=== PATIENT | male | born 1985 | race Caucasian/White ===

== ENCOUNTER 2022-03-17 09:51 | Emergency (ER) | payer OTHER, SELFPAY ==
[2022-03-17 10:07] VITALS: BP 138/86; PULSE 87; RESP 18; TEMP 36.3; O2SAT 97
--- NOTE | 2022-03-17 10:30 | DI.CT_ITS ---
Exam(s) CT ABDOMEN PELVIS W EXAM: CT ABDOMEN PELVIS W CLINICAL HISTORY: RLQ and right flank pain, back pain lumbar TECHNIQUE: Imaging Protocol: Axial computed tomography images with coronal and sagittal reformatted images were created and reviewed CONTRAST MATERIAL: Intravenous: Omnipaque 350 Contrast volume:100 mL Oral: No COMPARISON: No exams were available for comparison FINDINGS: ABDOMEN: Lung Bases: Normal where visualized. Liver: Normal density. No measurable mass. Portal, Superior Mesenteric, and Splenic Veins: Unremarkable. Gallbladder and Biliary Tract: No radiodense calculus or dilation. Pancreas: Normal density, no abnormal calcifications or inflammatory process. Spleen: Normal. Adrenals: No masses seen. Kidneys: Normal size, contour and axis. No radiodense stones or obstructive uropathy. No masses seen. Abdominal Aorta: Abdominal portion non-dilated. Bowel: There is mild thickening of the wall of the transverse colon and mild pericolonic inflammatory changes consistent with infectious or inflammatory colitis. There is no evidence of bowel obstructi on. Appendix is unremarkable. Peritoneal Cavity: No ascites, collection or mesenteric inflammatory response. No free air. Lymph Nodes: There are mildly enlarged mesenteric and right lower quadrant lymph nodes. These are li desmond reactive. Bones: Within normal limits for the patient's age. Soft Tissues: Unremarkable. PELVIS: Bladder: Symmetric distention, no gross wall thickening. Reproductive Organs: Unremarkable as visualized. Lymph Nodes: Within normal limits. Bones: Within normal limits for the patient's age. IMPRESSION: 1. Bowel wall thickening of the transverse colon with mild pericolonic inflammatory changes consisten t with an infectious or inflammatory colitis. 2. No free air or free fluid. 3. Findings were discussed with Raina Frederick at 11:39 a.m. on 03/17/2022. RADIATION DOSE DELIVERED: 1,214.48mGy.cm Total DLP DATA REPOSITORY: All CT scans at this facility are submitted to the National Radiology Data Registry (NRDR) Dose Index Registry (DIR) with the [employer] ([employer]). RADIATION OPTIMIZATION: All CT scans at this facility use at least one of these dose optimization te chniques: automated exposure control; mA and/or kV adjustment per patient size (includes targeted exa ms where dose is matched to clinical indication); or iterative reconstruction.
[2022-03-17 10:51] LABS: Abs Immature Grans 0.02 10^3/uL (0.0-0.06); Absolute Basophil Count 0.03 10^3/uL (0.0-0.2); Absolute Eosinophil Count 0.14 10^3/uL (0.0-0.7); Absolute Lymphocyte Count 1.71 10^3/uL (1.2-3.4); Absolute Monocyte Count 0.47 10^3/uL (0.1-0.8); Absolute Neutrophil Count 3.66 10^3/uL (1.2-6.7); Basophils % 0.5; Eosinophils % 2.3; HCT 42.1 % (40.0-50.0); HGB 13.5 g/dL (13.5-17.5); Immature Grans % 0.3; Lymphocytes % 28.4; MCH 27.7 pg (27.0-33.0); MCHC 32.1 % (32.0-36.0); MCV 86 fL (80-95); MPV 10.1 fL (8.0-11.0); Monocytes % 7.8; Neutrophils % 60.7; Platelet Count 196 10^3/uL (130-400); RBC 4.87 10^6/uL (4.36-5.78); RDW-SD 40.7 fL; WBC 6.03 10^3/uL (4.4-10.8)
[2022-03-17] MEDS: ACETAMINOPHEN 1,000 MG/100 ML BTL 400 MG IVPB (10:53)
[2022-03-17 11:01] LABS: Bilirubin Negative (Negative); Blood Trace-intact (Negative); Clarity Clear (Clear); Glucose Negative (Negative); Ketones Negative (Negative); Leukocyte Esterase Negative (Negative); Nitrite Negative (Negative); Specific Gravity 1.025 (1.005-1.025); Urobilinogen 0.2 EU/dL (Up TO 0.2)
[2022-03-17 11:09] LABS: Bacteria Negative HPF (Negative); C & S Indicated? No; Casts Negative LPF (Negative); Crystals Negative HPF (Negative); Epithelial Cells Rare HPF (Negative); Mucus Trace (Negative); RBC 0-2 HPF (0-2); WBC 0-2 HPF (0-5)
[2022-03-17] MEDS: Omnipaque 350 MG/ML 100 ML BTL IJ (11:15)
[2022-03-17] MEDS: Normal Saline - Diluent 50 ML VIAL IV (11:16)
[2022-03-17 11:17] LABS: ALT 23 U/L (16-63); AST 21 U/L (15-37); Albumin 3.8 g/dL (3.4-5.0); Alkaline Phosphatase 61 U/L (46-116); Anion Gap 5.4 mmol/L (3-11); BUN 14 mg/dL (7-18); Bilirubin, Total 0.8 mg/dL (0.2-1.0); CO2 28.6 mmol/L (21.0-32.0); Calcium 8.7 mg/dL (8.5-10.1); Chloride 104 mmol/L (98-107); Glucose 110 mg/dL (74-106); Lipase 49 U/L (73-393); Sodium 138 mmol/L (136-145); Total Protein 7.3 g/dL (6.4-8.2)
--- NOTE | 2022-03-17 11:20 | ED.GENADUL_ITS ---
Discharge Plan Disposition Patient Disposition: Home Condition: Stable Discharge Details Clinical Impression: Colitis Primary Care Provider: Joel Babcock ED Provider: Raina Frederick Home Meds and New Rx's Prescriptions: New amoxicillin-pot clavulanate 875-125 mg tablet 1 tab PO BID Qty: 14 0RF Continued quetiapine [Seroquel] 400 mg Tablet 400 mg PO HS sertraline 200 mg Capsule 200 mg PO DAILY acyclovir 400 mg Tablet 400 mg PO DAILY Discharge Instructions Additional Instructions: Take the antibiotic as prescribed Yogurt daily while on antibiotic Follow-up with your primary care physician Return immediately should you have fever, chills, worsening pain, or with any new or progressing symptoms Referrals: Joel Babcock [Primary Care Provider] - 1 day Johnny Taylor MD [ [facility] STAFF PHYSICIAN] - Discharge Data Discharge Date/Time-TO BE ENTERED AT DEPARTURE: 03/17/22 12:07 Medical Decision Making This otherwise healthy 36-year-old gentleman presents with 6 weeks of abdominal pain, he has evidence of colitis on CT scan without obvious evidence of diverticulitis, and the history of 6 weeks of symptoms, he was placed on Augmentin for several days secondary to evidence of colitis with symptoms for 6 weeks Interestingly, the patient does not have documented diarrhea Will need outpatient colonoscopy, he is placed on the surgery list for follow- up Return precautions were reviewed and patient expressed understanding, discharged home in stable condition with stable vitals, surgical referrals applied PCP follow-up recommended Return precautions reviewed and patient expressed understanding Medical Records Medical records reviewed: Yes I reviewed the patient's medical records. Lab Data Lab results reviewed: Yes I reviewed the patient's lab results. Sign Out No HPI General Date/Time Provider Initiated Documentation: 03/17/22 10:19 . HPI Narrative: This 36-year-old male presents with report of left lower quadrant pain with radiation into the back. Denies any urinary complaints. Denies known hernia. States he has a history of chronic back pain but this pain is different. He does report that it occasionally radiates into his left testicle. He denies any hematuria. Pain is been going on for approximately 3 weeks and he describes it as a cramping and intermittently sharp pain. Denies any nausea or vomiting. Related Data Home Medications Medication Instructions Recorded Confirmed acyclovir 400 mg tablet 400 mg PO DAILY 03/17/22 03/17/22 amoxicillin 875 mg-potassium 1 tab PO BID #14 tabs 03/17/22 clavulanate 125 mg tablet quetiapine 400 mg tablet (Seroquel) 400 mg PO HS 03/17/22 03/17/22 sertraline 200 mg capsule 200 mg PO DAILY 03/17/22 03/17/22 Previous Rx's Medication Instructions Recorded amoxicillin 875 mg-potassium 1 tab PO BID #14 tabs 03/17/22 clavulanate 125 mg tablet Allergies Allergy/AdvReac Type Severity Reaction Status Date / Time tramadol Allergy Unverified 03/17/22 10:12 trazodone Allergy Unverified 03/17/22 10:12 General Stated Complaint: Abd Prob YOLANDA: 3 Review of Systems All systems reviewed & are unremarkable except as noted in HPI and below PFSH All Active Problems (Updated 03/17/22 @ 11:57 by CELINA Taylor) Colitis (Acute) Social History Smoking/Tobacco Use Status: Former Tobacco Use Smoking risk assessment performed?: Yes Alcohol Intake: never Drug use: Daily Substance use type: marijuana Do you feel safe at home: Yes Do you feel safe in your relationship?: Yes Exam Const General: cooperative, comfortable and no acute distress HENMT Mouth: oral mucosae normal Eyes Sclera: sclerae normal Resp Effort & Inspection: normal respiratory effort Auscultation: clear to auscultation bilaterally Cardio Rate: regular rate Rhythm: regular rhythm GI Other: LLQ tenderness, no cva tenderness, no rebound or guarding Skin General skin exam: no rashes or lesions noted Neuro General: patient alert and patient oriented x3 Extrem Other: Distal pulses intact Course Vital Signs Vital signs: Vital Signs Temperature 36.3 C L 03/17/22 10:07 Pulse 87 03/17/22 10:07 Respiratory Rate 18 03/17/22 10:07 Blood Pressure 138/86 03/17/22 10:07 Pulse Oximetry 97 03/17/22 10:07 Temperature 36.3 C L 03/17/22 10:07 Temperature Source Temporal Artery Scan 03/17/22 10:07 Pulse 87 03/17/22 10:07 Respiratory Rate 18 03/17/22 10:07 Respiratory Effort Non-Labored 03/17/22 10:10 Blood Pressure 138/86 03/17/22 10:07 Blood Pressure Position Sitting 03/17/22 10:07 Pulse Oximetry 97 03/17/22 10:07 Oxygen Delivery Method Room Air 03/17/22 10:07 Oxygen Flow Rate 0 03/17/22 10:07 Pain Level 8 03/17/22 10:07 Lab/Test Results Lab/Test Results: Laboratory Tests Range/Units 03/17/22 03/17/22 03/17/22 10:42 10:42 10:52 WBC (4.4-10.8) 10^3/uL 6.03 RBC (4.36-5.78) 10^6/uL 4.87 Hgb (13.5-17.5) g/dL 13.5 Hct (40.0-50.0) % 42.1 MCV (80-95) fL 86 MCH (27.0-33.0) pg 27.7 MCHC (32.0-36.0) % 32.1 RDW (11.8-14.1) % 13.0 Plt Count (130-400) 10^3/uL 196 MPV (8.0-11.0) fL 10.1 Immature Gran % 0.3 Neutrophils % 60.7 Lymphocytes % 28.4 Monocytes % 7.8 Eosinophils % 2.3 Basophils % 0.5 Nucleated RBC % (0.0-0.3) % 0.0 Absolute Neutrophils (1.2-6.7) 10^3/uL 3.66 Absolute Lymphocytes (1.2-3.4) 10^3/uL 1.71 Absolute Monocytes (0.1-0.8) 10^3/uL 0.47 Absolute Eosinophils (0.0-0.7) 10^3/uL 0.14 Absolute Basophils (0.0-0.2) 10^3/uL 0.03 Sodium (136-145) mmol/L 138 Potassium (3.5-5.1) mmol/L 4.0 Chloride (98-107) mmol/L 104 Carbon Dioxide (21.0-32.0) mmol/L 28.6 Anion Gap (3-11) mmol/L 5.4 BUN (7-18) mg/dL 14 Creatinine (0.70-1.30) mg/dL 1.0 Est GFR (CKD-EPI 2020) (mL/min/1.73m2) 98.80 Glucose (74-106) mg/dL 110 H Calcium (8.5-10.1) mg/dL 8.7 Total Bilirubin (0.2-1.0) mg/dL 0.8 AST (15-37) U/L 21 ALT (16-63) U/L 23 Alkaline Phosphatase (46-116) U/L 61 Total Protein (6.4-8.2) g/dL 7.3 Albumin (3.4-5.0) g/dL 3.8 Lipase (73-393) U/L 49 Urine Color (Yellow) Yellow Urine Clarity (Clear) Clear Urine pH (5-8) 7.0 Ur Specific [place] (1.005-1.025) 1.025 Urine Protein (Negative) mg/dL Negative Urine Ketones (Negative) mg/dL Negative Urine Blood (Negative) Trace-intact H Urine Nitrite (Negative) Negative Urine Bilirubin (Negative) Negative Urine Urobilinogen (Up TO 0.2) EU/dL 0.2 Ur Leukocyte Esterase (Negative) Negative Urine RBC (0-2) HPF 0-2 Urine WBC (0-5) HPF 0-2 Ur Epithelial Cells (Negative) HPF Rare Urine Crystals (Negative) HPF Negative Urine Bacteria (Negative) HPF Negative Urine Casts (Negative) LPF Negative Urine Mucus (Negative) Trace Ur Culture Indicated? No Urine Glucose (Negative) mg/dL Negative
[2022-03-17 12:05] VITALS: BP 137/98; PULSE 68; RESP 16; TEMP 36.9; O2SAT 98
--- NOTE | 2022-03-17 16:48 | NUR.NOTE ---
Nursing Note: REFERRAL TO [facility] FOR SURGERY
--- NOTE | 2022-03-18 16:55 | PDOC.ERCMACT ---
- If Service Date Differs Date of service: 03/18/22 Time of Service: 16:55 Care Management Activity Note Charles is seen in the ED for abdominal pain. At the request of ED provider, FAIZAN coordinates a referral to [facility] to assist Charles in obtaining an appointment for a colonoscopy. He has Medicare for insurance.
== END 2022-03-17 12:07 | disposition home or self-care (01) ==
PROVIDERS: Emergency Provider Physician Assistant; PCP Nurse Practitioner Family
DX: K52.9 Noninfective gastroenteritis and colitis, unspecified (principal)
CPT/HCPCS: 36415; 80053; 83690; 96374; 99285; 74177; 81003; 81015; 85025; 99284; J0131; J3490